=== PATIENT | male | born 1955 | race Caucasian/White ===

== ENCOUNTER 2018-03-29 04:17 | Inpatient (IN) | payer OTHER ==
[~2018-03-29] VITALS: Ht 177.8 cm; Wt 56.7 kg
[2018-03-29 04:58] LABS: Hemoglobin 16.8 g/dL (13.5-17.5); Mean Corpuscular HGB 27.5 pg (26.0-34.0); Mean Corpuscular HGB Conc 30.4 g/dL (31.5-36.5); Mean Corpuscular Volume 90 fL (80-100); Mean Platelet Volume 8.9 fL (9.1-12.4); Platelet Count 599 K/mm3 (150-400); RDW Coefficient Variation 19.5 % (11.7-14.2); RDW Standard Deviation 59.2 fL (35.1-46.3); Red Blood Cell Count 6.12 M/mm3 (4.30-5.90); White Blood Cell Count 44.35 K/mm3 (4.00-11.30)
[2018-03-29 05:06] LABS: Hematocrit 55.2 % (37.0-53.0)
[2018-03-29 05:14] LABS: Alanine Aminotransfer (ALT/SGP 22 U/L (12-78); Albumin, Blood 2.3 g/dL (3.4-5.0); Albumin/Globulin Ratio 0.6 (0.8-1.8); Alk Phos 98 U/L (50-136); Anion Gap 20 mmol/L (6-16); Aspartate Aminotrans (AST/SGOT 26 U/L (12-37); Bilirubin, Total 0.7 mg/dL (0.1-1.0); Blood Urea Nitrogen 36 mg/dL (8-24); Bun/Creatinine Ratio 30.5 (12.0-20.0); CO2, Blood 16 mmol/L (21-32); Calcium, Blood 9.1 mg/dL (8.5-10.1); Chloride, Blood 94 mmol/L (98-108); Creatinine, Blood 1.18 mg/dL (0.60-1.20); Globulin, Blood 4.1 g/dL (2.2-4.0); Glomerular Filtration Rate >60 (60-); Glucose, Blood 190 mg/dL (70-99); Potassium, Blood 4.8 mmol/L (3.5-5.5); Sodium, Blood 130 mmol/L (136-145); Total Protein, Blood 6.4 g/dL (6.4-8.2)
[2018-03-29 05:39] LABS: BAND PERCENT MAN 14 % (0-8); BASOPHILS PERCENT MAN 0 % (0-2); EOSINOPHILS PERCENT MAN 0 % (0-6); LYMPHOCYTES PERCENT MAN 7 % (21-46); MONOCYTES ABSOLUTE MAN 1.33 K/mm3 (0.16-1.47); MONOCYTES PERCENT MAN 3 % (4-13); MYELOCYTE ABSOLUTE MAN 0.44 K/mm3 (0.00-0.00); MYELOCYTE PERCENT MAN 1 % (0-0); NEUTROPHILS ABSOLUTE MAN 39.47 K/mm3 (1.96-9.15); SEG NEUTROPHILS PERCENT MAN 75 % (41-73); TOTAL CELLS COUNTED 100
[2018-03-29] MEDS ORDERED: LORA.5 PO (06:23)
[2018-03-29] MEDS ORDERED: MIRT15 PO (06:23)
[2018-03-29] MEDS ORDERED: FENT50TP TOP (06:23)
[2018-03-29] MEDS ORDERED: HYDMOR4 PO (06:24)
[2018-03-29] MEDS ORDERED: DOCU100 PO (06:24)
[2018-03-29] MEDS ORDERED: BENZ100A PO (16:53)
[2018-03-29] MEDS ORDERED: DEXA4 PO (16:54)
[2018-03-29] MEDS ORDERED: SENN187 PO (16:55)
[2018-03-29] MEDS ORDERED: CYCL10 PO (16:56)
[2018-03-29] MEDS ORDERED: ONDA4 PO (16:57)
[2018-03-29] MEDS ORDERED: CHOL10002 PO (16:58)
[2018-03-29] MEDS ORDERED: MORP20L PO (16:59)
== END 2018-03-29 21:33 | DRG 871 ==
LOC: ER 04:17 → MEDS 06:17
PROVIDERS: Emergency Medicine
DX: A41.9 Sepsis, unspecified organism (principal); J96.21 Acute and chronic respiratory failure with hypoxia; C79.9 Secondary malignant neoplasm of unspecified site; C34.90 Malignant neoplasm of unspecified part of unspecified bronchus or lung; J44.1 Chronic obstructive pulmonary disease with (acute) exacerbation; R64 Cachexia; Z68.1 Body mass index [BMI] 19.9 or less, adult; R18.8 Other ascites; R65.20 Severe sepsis without septic shock; Z51.5 Encounter for palliative care; F17.210 Nicotine dependence, cigarettes, uncomplicated; E86.0 Dehydration; Z66 Do not resuscitate
CPT/HCPCS: 36415; 71046; 71260; 74018; 80053; 83605; 85025; 87040; 94644; 96361; 96365; 96366; 96368; 96375; 99285; J0456; J0696; J1650; J2060; J2930; J3010; J7030; J7050; Q9967